=== PATIENT | female | born 1965 | race Caucasian/White ===

== ENCOUNTER 2017-11-01 10:01 | Day surgery (SDC) | payer OTHER ==
[~2017-11-01 10:01] MED LIST: ACETAMINOPHEN 1,000 MG/100 ML BTL IV ONE
[2017-11-01] MEDS ORDERED: ONDANSETRON HCL IV 4 MG/2 ML VIAL IVP ONE (10:02)
[2017-11-01] MEDS ORDERED: HYDROCODONE/APAP 5/325MG TABLET PO ONE (10:02)
[2017-11-01] MEDS ORDERED: SEVOFLURANE 250 ML INH ONE (10:02)
[2017-11-01] MEDS ORDERED: BUPIVACAINE 0.25% W/EPI MPF 30ML VIAL IVP ONE (10:02)
[2017-11-01] MEDS ORDERED: LIDOCAINE 2% MDV (20MG/ML) 20ML VIAL IV ONE (10:02)
[2017-11-01] MEDS ORDERED: PROPOFOL 10 MG/ML VIAL IV ONE (10:02)
[2017-11-01 10:26] LABS: BLOOD UREA NITROGEN 13 mg/dL (6-20); CREATININE 0.7 mg/dL (0.5-0.9); EST GLOMERULAR FILTRATION RATE > 60 mL/min; GLUCOSE,RANDOM 117 mg/dL (74-109)
--- NOTE | 2017-11-05 12:30 | Operative Note ---
DATE OF SURGERY: 11/01/2017 Surgeon: Jese Buenrostro DO PREOPERATIVE DIAGNOSES: 1. Torn medial meniscus right knee. 2. Chondromalacia of the right knee. POSTOPERATIVE DIAGNOSES: 1. Torn medial meniscus right knee. 2. Synovitis right knee. 3. Osteoarthritis right knee. OPERATION: 1. Arthroscopic partial medial meniscectomy right knee. 2. Arthroscopic chondroplasty of the patella right knee. 3. Arthroscopic partial synovectomy of the right knee. DESCRIPTION OF PROCEDURE: This 51-year-old female was taken to the operating room and placed in the supine position on the operating room table. A general anesthetic was administered. The right lower extremity was elevated, exsanguinated, and the tourniquet inflated to 300 mmHg. Arthroscopic knee barney applied. The right knee prepped with Hibiclens and draped in the usual sterile fashion. An inferolateral portal was established for the 4 mm arthroscope and initial evaluation of the joint demonstrated normal appearance of the suprapatellar pouch. The patella demonstrated advanced osteoarthritic change with a severe full-thickness defect involving almost the entire lateral facet being approximately 2 to 2.5 cm in greatest dimension with the remainder showing grade 3 changes. Chondroplasty was performed to restore stability to the articular cartilage of the patella. The trochlea, however, appeared relatively normal. Synovitis was present in the fat pad and this was debrided with a rotating shaver. The medial compartment was entered and a evidence of a tear of the posterior horn of the medial meniscus extending to the meniscal root was evident. This was an oblique tear, and this was resected with a rotating shaver and basket forceps to form a smooth contoured surface. The meniscus was re-probed and confirmed to be stable. The intercondylar notch was examined and found to be normal. The lateral compartment was entered. No evidence of tear of the lateral meniscal was present. The joint was copiously irrigated, suctioned and the instruments were removed. The portals were infiltrated with 0.25% Marcaine with epinephrine. Sterile dressings applied after the wounds had been closed with 4-0 nylon suture. She was taken to the recovery room in satisfactory condition. GROSS PATHOLOGY: This patient demonstrated severe degenerative grade 4 lesion of the lateral facet of the patella and this lesion also demonstrated grade 3 damage to the surrounding articular cartilage of the patella. In addition, a tear of the medial meniscus was present as described and synovitis in the fat pad was identified. CC: Olga Vasquez MD MTDD
== END 2017-11-01 13:00 | disposition home or self-care (01) ==
LOC: SUR 10:01
PROVIDERS: ATTEND Orthopaedic Surgery
DX: S83.241D Other tear of medial meniscus, current injury, right knee, subsequent encounter (principal); M94.261 Chondromalacia, right knee; M17.11 Unilateral primary osteoarthritis, right knee; I10 Essential (primary) hypertension
CPT/HCPCS: 29881; 29875; 01400; 80048; J2405